=== PATIENT | female | born 1975 | race African-American/Black ===

== ENCOUNTER 2019-04-30 21:48 | Emergency (ER) | payer BC, MEDICARE ==
[~2019-04-30] VITALS: Ht 154.9 cm; Wt 90.9 kg
[2019-04-30 21:53] VITALS: Ht 154.9 cm; Wt 90.9 kg
[2019-04-30] MEDS ORDERED: NEURONTIN800 MG PO (21:55)
[2019-04-30] MEDS ORDERED: ZANAFLEX4 MG PO (21:56)
[2019-04-30] MEDS ORDERED: METOPROLOL-HCT1 EACH PO (21:56)
[2019-04-30] MEDS ORDERED: LAMICTAL25 MG PO (21:57)
[2019-04-30] MEDS ORDERED: PROTONIX40 MG PO (21:57)
[2019-04-30] MEDS ORDERED: EFFEXOR75 MG PO (21:57)
[2019-04-30] MEDS ORDERED: MERIBIN5 MG PO (21:58)
[2019-04-30] MEDS ORDERED: OMEGA-3100 MG PO (21:58)
[2019-04-30] MEDS ORDERED: STOOL SOFTENER100 M1 PO (21:58)
[2019-04-30] MEDS ORDERED: PROBIOTIC1 EAC1 PO (21:58)
[2019-04-30] MEDS ORDERED: LEVAQUIN750 MG PO (22:07)
[2019-04-30 22:37] LABS: HEMATOCRIT 38.7 % (36.0-48.0); HEMOGLOBIN 12.1 g/dL (12-16); MCH 27.1 pg (26.0-34.0); MCHC 31.3 g/dL (31.0-37.0); MCV 86.6 fL (80.0-100.0); MEAN PLATELET VOLUME 9.6 fL (7.4-10.4); PLATELET COUNT 467 10x3/uL (130-400); RBC 4.47 10x6/uL (4.00-5.40); RDW 13.6 % (11.5-14.5); WBC 8.3 10x3/uL (4.8-10.8)
[2019-04-30 22:40] LABS: ANION GAP 12.5 mmol/L (8-16); CALCIUM 8.7 mg/dL (8.5-10.1); CARBON DIOXIDE 27.6 mmol/L (21.0-32.0); CREATININE - SERUM 0.9 mg/dL (0.6-1.3); POTASSIUM - SERUM 4.1 mmol/L (3.5-5.1)
[2019-04-30 22:46] LABS: BILIRUBIN - TOTAL 0.36 mg/dL (0.2-1.3); PROTEIN - SERUM 7.3 g/dL (6.4-8.2)
[2019-04-30 22:47] LABS: APPEARANCE CLEAR (CLEAR); COLOR YELLOW (YELLOW); NITRITE NEGATIVE (NEGATIVE); PROTEIN NEGATIVE (NEGATIVE)
[2019-04-30 22:48] LABS: BILIRUBIN NEGATIVE (NEGATIVE); GLUCOSE NEGATIVE (NEGATIVE); KETONE NEGATIVE (NEGATIVE); UROBILINOGEN NORMAL (NORMAL)
[2019-04-30 23:01] LABS: EOSINOPHILS 2 % (0-7); LYMPHOCYTES 58 % (15-50); MONOCYTES 6 % (2-11); NEUTROPHILS 34 % (40-80); PLATELET ESTIMATE INCREASED
--- NOTE | 2019-04-30 23:31 | NUR ---
DR. OLSON NOTIFIED AND REVIEWED PT'S BEHAVIOR AND ASSESSMENT RESULTS. PT IS A LOW RISK PER DR. OLSON. DR. OLSON STATED TO GIVE RESOURCES TO PT AT TIME OF DISCHARGE. NO FURTHER ORDERS AT THIS TIME. RESOURCES REVIEWED WITH PT AND SHE VERBALIZED UNDERSTANDING.
[2019-04-30 23:59] VITALS: BP 150/90
== END 2019-04-30 23:59 | disposition home or self-care (01) ==
LOC: D.ER 21:48
PROVIDERS: Family Medicine
DX: I10 Essential (primary) hypertension (principal); R11.0 Nausea